=== PATIENT | male | born 1990 | race Caucasian/White ===

== ENCOUNTER 2018-02-07 18:09 | Emergency (ER) | payer SELFPAY ==
[2018-02-07 18:24] VITALS: BP 136/86; PULSE 77; RESP 18; TEMP 98.8; O2SAT 99
--- NOTE | 2018-02-07 19:29 | C.PDOC ---
History Of Present Illness 27 y/o male with no known medical history c/o 3 months of his tongue having white coating sometimes, with no pain, can be brushed off. pt sts he spits a lot. denies dental pain and throat pain. also c/o itching to scrotum with peeling skin sometimes. also for 3 months. denies dysuria. denies penile discharge. denies teste and penile pain. Time Seen by Provider: 02/07/18 18:50 Chief Complaint (Nursing): Medical Clearance History Per: Patient History/Exam Limitations: no limitations, language barrier (interpeter [id number] [facility]) Onset/Duration Of Symptoms: Days (90) Current Symptoms Are (Timing): Still Present Severity: Mild Past Medical History Reviewed: Historical Data, Nursing Documentation, Vital Signs Vital Signs: Last Vital Signs Temp 98.8 F 02/07/18 18:21 Pulse 77 02/07/18 18:21 Resp 18 02/07/18 18:21 BP 136/86 02/07/18 18:21 Pulse Ox 99 02/07/18 18:21 - Medical History PMH: No Chronic Diseases Family History: States: Unknown Family Hx - Social History Hx Tobacco Use: No Hx Alcohol Use: No Hx Substance Use: No - Immunization History Hx Tetanus Toxoid Vaccination: No Hx Influenza Vaccination: No Hx Pneumococcal Vaccination: No Review Of Systems Constitutional: Negative for: Fever, Chills ENT: Negative for: Mouth Pain, Mouth Swelling, Throat Pain, Throat Swelling Gastrointestinal: Negative for: Abdominal Pain Genitourinary: Positive for: Rash. Negative for: Dysuria, Penile Discharge, Scrotal Pain, Penile Pain Skin: Positive for: Rash (redness to penis) Physical Exam - Physical Exam Appears: Non-toxic, No Acute Distress Skin: Warm, Dry Tongue: Normal Appearing, No Swelling, No Lesions, No Bleeding, No Fissured Lips: Normal Appearing Teeth: Normal Dentition Gingiva: Normal Appearing Throat: No Erythema, No Exudate Neck: Supple Lymphatic: No Adenopathy Gastrointestinal/Abdominal: Bowel Sounds, Soft, No Tenderness, No Guarding, No Rebound Male Genital: No Testicular Tenderness, No Inguinal Tenderness, No Inguinal Swelling, No Scrotal Swelling, No Circumcised, Other (mild erythema to underside of penis, no lesions noted. no dischrage from urethra. ) ED Course And Treatment O2 Sat by Pulse Oximetry: 99 Medical Decision Making Medical Decision Making: pt with c/o whitish tongue and peeling itchy skin on penis. tongue appears normal, mild erythema to underside penis, lotrimin prescribed. f/u med clinic. Disposition Counseled Patient/Family Regarding: Diagnosis, Need For Followup, Rx Given - Disposition Referrals: [facility] [Outside] Disposition: HOME/ ROUTINE Disposition Time: 19:36 Condition: GOOD Additional Instructions: Por favor, seguimiento en la clnica mdica. Acuda a la clnica de lunes a viernes de 830 am a 330 pm para solicitar atencin de emily. Mantener el escroto seco. Use la crema segn lo prescrito. Cepille suavemente la lengua al cepillarse los dientes. Please follow up in medical clinic. Come to clinic Thursday -Thursday 830 am - 330 pm to apply for rome care. Keep scrotum dry. Use cream as prescribed.[place] tongue gently when brushing teeth. Prescriptions: Clotrimazole 1% Cream [Lotrimin 1% CREAM] 1 applic TOP BID #1 tube Instructions: Yeast Infection (DC) Forms: Gen Discharge Inst Indonesian, [employer] (Indonesian) Print Language: [place] CITIZEN - Clinical Impression Clinical Impression: Medical assessment
== END 2018-02-07 19:50 | disposition home or self-care (01) ==
LOC: C.ER 18:09
DX: Z00.00 Encounter for general adult medical examination without abnormal findings (principal)